=== PATIENT | female | born 1935 | race Caucasian/White ===

== ENCOUNTER 2016-11-01 09:00 | Inpatient (IN) | payer MEDICARE ==
[~2016-11-01] VITALS: Ht 154.9 cm; Wt 82.3 kg
--- NOTE | ~2016-11-01 | DS ---
PATIENT'S NAME: ADE RICARDO [facility] AGE: 81 Y [address] ROOM: [address] [address] LOCATION: GPCU ADMIT DATE: 11/07/2016 Discharge Summary DISCHARGE DATE: 11/09/2016 FAMILY PHYSICIAN: Keanu Salvador MD ATTENDING PHYSICIAN: Kelly Nielsen ADMISSION MAIN DIAGNOSIS: Pituitary macroadenoma with visual field defect. DISCHARGE MAIN DIAGNOSIS: Pituitary macroadenoma with visual field defect. PROCEDURE DURING ADMISSION: Stealth-guided endoscopic endonasal transsphenoidal resection of pituitary macroadenoma. COMPLICATIONS DURING ADMISSION: None. MEDICATIONS ON DISCHARGE: 1. Resume all pre-admission medications as listed in the discharge summary. 2. Aspirin 81 mg p.o. once daily, start on November 19, 2016. 3. Clindamycin 150 mg p.o. b.i.d. for 3 days and then stop. DISCHARGE INSTRUCTIONS AND FOLLOWUP APPOINTMENTS: 1. Myself on November 23, 2016, for postoperative assessment. 2. Call my office for any concerns such as leakage from the nose, new neurologic deficits. 3. No nasal blowing for 3 weeks, no swimming for 6 weeks. HOSPITAL COURSE: The patient was admitted electively for the above-mentioned surgery. She underwent an unremarkable operation. Postoperatively, the patient did very well. She had no new neurologic deficits. Her visual field defect was stable and there was no worsening of her vision. The patient was initially monitored in the intensive care unit and subsequently transferred to the segura. She remained neurologically stable. Her urine output was monitored and there was no evidence of diabetes insipidus. The a.m. cortisol level was checked on postoperative day #1 and postoperative day #2 and that was within normal. She had no leakage from her nose. On the day of discharge, the patient was examined. Her nose was dry. Her vital signs were stable. Her vision was stable. She had no new neurologic deficits. I reviewed the discharge instructions with the patient, and based on my assessment, the patient will be discharged home today. KELLY NIELSEN MD PATIENT'S NAME: ADE RICARDO [facility] AGE: 81 Y [address] ROOM: [place] [address] [facility] ADMIT DATE: 11/07/2016 Discharge Summary DISCHARGE DATE: 11/09/2016 FAMILY PHYSICIAN: Keanu Salvador MD ATTENDING PHYSICIAN: Kelly Nielsen /[id number] CC: Keanu Salvador MD d: 11/10/16 0317 t: 11/10/16 1643, DISCHARGE SUMMARY
--- NOTE | ~2016-11-01 | OR ---
PATIENT'S NAME: ADE RICARDO [facility] AGE: 81 Y [address] ROOM: [place] [address] LOCATION: GICU ADMIT DATE: 11/07/2016 OR/Procedure Report DISCHARGE DATE: FAMILY PHYSICIAN: KEANU DUNAWAY MD ATTENDING PHYSICIAN: KELLY NIELSEN SURGEON: Kelly Nielsen MD SUPERVISOR STAVE FINISHING: DATE OF PROCEDURE: 11/07/2016 ANESTHESIOLOGIST: Oliver Geronimo M.D. ANESTHESIA: General. COMPLICATIONS: None. ESTIMATED BLOOD LOSS: 150 mL. PREOPERATIVE DIAGNOSIS: Pituitary macroadenoma with visual field defect. POSTOPERATIVE DIAGNOSIS: Pituitary macroadenoma with visual field defect. PROCEDURES: 1. Stealth navigation system for resection of pituitary macroadenoma. 2. Endoscopic endonasal transsphenoidal resection of pituitary macroadenoma. CLINICAL HISTORY: The patient is an 81-year-old female patient, who was diagnosed with large pituitary tumor with significant compression on the optic chiasm. The patient had visual field defect related to the tumor. I recommended the above mentioned surgery to the patient and her family to try to decompress the optic apparatus and improve her vision. I discussed the procedure itself, the risks and benefits associated with it. The patient was interested in proceeding with surgery, so she was brought in for the surgery. DESCRIPTION OF PROCEDURE: The patient was seen in the preoperative care unit and the correct side was marked. Then, she was transferred to the main operating theater, was given general anesthetic, and underwent endotracheal intubation without complications. Preoperative antibiotics were given. An arterial line was used throughout the procedure. Calf compressors were used throughout the procedure. A Schwartz catheter was inserted and used throughout the procedure. The patient was positioned supine on the table and all her joints and bony prominences were securely padded. The patient's head was clamped in radiolucent Cronin and secured to the table. Then, the patient was registered to the [employer] navigation system with good accuracy. I then marked the transverse incision on the right upper quadrant of the abdomen for PATIENT'S NAME: ADE RICARDO [facility] AGE: 81 Y [address] ROOM: [place] [address] LOCATION: GICU ADMIT DATE: 11/07/2016 OR/Procedure Report DISCHARGE DATE: FAMILY PHYSICIAN: KEANU DUNAWAY MD ATTENDING PHYSICIAN: KELLY NIELSEN potential fat graft. The nose and the abdomen were then prepped and draped as per usual. Using the endoscope, I navigated through the nose from the right nostril up to the floor of the sphenoid sinus. The middle turbinate was reflected laterally. The mucosa overlying the bony septum was removed, then the bony septum was removed down to the vomer. I used the [employer] navigation system to navigate through the nose down to the anterior aspect of the sphenoid sinus. The floor of the sphenoid sinus was then removed using rongeur. The lumen of the sphenoid sinus was entered and the mucosa overlying it was removed. Immediately, I noticed the part of the tumor that is located in the sphenoid sinus. The tumor itself caused significant destruction of the sella turcica floor. I was satisfied with the exposure, so I proceeded to the resection. I started by opening the dura in the midline and then laterally. Immediately, I came across the large pituitary macroadenoma. Using ring curettes, multiple specimens were taking out and sent for pathological analysis. Then, the tumor was completely resected using suction and ring curettes. At the end of the resection, the diaphragma sellae was completely decompressed. I had no CSF leak during the resection. I was satisfied with the resection, so I proceeded to hemostasis and closure. The surgical site was copiously irrigated with warm Plasma-Lyte. Then, the dural opening was repaired using dura repair. DuraSeal was used to seal the opening. Hemostasis was maintained in the nasal cavity and any debris was removed. At the end of the operation, the instrument and sponge counts were correct. The patient tolerated the operation without any complications. KELLY NIELSEN MD AB/modl /[id number] CC: Keanu Dunaway MD d: 11/07/162022 t: 11/08/16 1055, OPERATIVE SUMMARY
[2016-11-01] MEDS ORDERED: ASPIRIN EC81 MG PO (09:32)
[2016-11-01] MEDS ORDERED: OMEPRAZOLE20 MG PO (09:33)
[2016-11-01] MEDS ORDERED: LEVOTHROID (SY50 MCG PO (09:34)
[2016-11-01] MEDS ORDERED: LOTENSIN40 MG PO (09:35)
[2016-11-01] MEDS ORDERED: NORVASC10 MG PO (09:35)
[2016-11-01] MEDS ORDERED: ZOCOR20 MG PO (09:35)
[2016-11-01] MEDS ORDERED: LATANOPROST2.5 ML OPHTH (09:37)
[2016-11-01] MEDS ORDERED: AYR SALINE50 ML NOSE (09:39)
[2016-11-01] MEDS ORDERED: COLACE100 MG PO (10:28)
[2016-11-07 17:11] LABS: ALBUMIN 3.6 gm/dL (3.5-5.0); ANION GAP 14.3 (10.0-19.0); CALCIUM 7.8 mg/dL (8.5-10.5); CREATININE 0.9 mg/dL (0.5-1.1); POTASSIUM 4.3 mMol/L (3.7-5.1); TOTAL BILIRUBIN 0.4 mg/dL (0.0-1.5); TOTAL PROTEIN 6.5 g/dL (6.0-8.4)
[2016-11-07 17:12] LABS: BASOPHIL % 0.2 %; EOSINOPHIL % 0.1 %; HEMATOCRIT 30.5 % (30.0-46.0); HEMOGLOBIN 10.2 g/dL (10.0-15.0); IMMATURE GRANULOCYTE % 0.2 %; LYMPHOCYTE # 0.8 K/uL (0.8-4.0); LYMPHOCYTE % 8.2 %; MCH 31.1 pg (27.0-34.0); MCHC 33.4 gm/dL (32.0-36.5); MONOCYTE # 0.6 K/uL (0.0-1.0); MONOCYTE % 6.2 %; MPV 10.8 fl (9.4-12.4); NEUTROPHIL # (ANC) 7.7 K/uL (1.8-7.8); NEUTROPHIL % 85.1 %; NRBC % 0 /100WBC (0-0.00); PLATELET COUNT 160 K/uL (150-450); RBC 3.28 M/uL (3.00-5.00); RDW-CV 12.5 % (11.9-14.6); WBC 9.1 K/uL (4.0-11.0)
--- NOTE | 2016-11-08 04:48 | NUR ---
Significant Event: A/O. DID NOT REST WELL OVERNIGHT. VSS. BP LOW OF 91. DESATS TO 70'S WHILE SLEEPING. PLACED ON 2L O2 OVERNIGHT. NOTIFIED DR. CLAROS OF O2 AND SBP IN 90'S, HE WAS "OK" WITH BOTH. HAD 1030ML UOP FROM [place]. NO BM OVERNIGHT. SMALL PO INTAKE. NO NAUSEA. DENIES PAIN. GAUZE TO NARES INTACT, NO DRAINAGE. HAS HAD SMALL AMOUNT OF BLOODY SPUTUM COUGHED OUT. BATH COMPLETE. Follow up: CONTINUE TO MONITOR.
[2016-11-08 05:31] LABS: BASOPHIL % 0.1 %; HEMATOCRIT 28.5 % (30.0-46.0); HEMOGLOBIN 9.6 g/dL (10.0-15.0); IMMATURE GRANULOCYTE % 0.3 %; LYMPHOCYTE # 0.7 K/uL (0.8-4.0); LYMPHOCYTE % 10.1 %; MCH 31.4 pg (27.0-34.0); MCHC 33.7 gm/dL (32.0-36.5); MCV 93.1 fl (83.0-98.0); MONOCYTE # 0.6 K/uL (0.0-1.0); MONOCYTE % 8.1 %; MPV 10.4 fl (9.4-12.4); NEUTROPHIL # (ANC) 5.6 K/uL (1.8-7.8); NEUTROPHIL % 81.4 %; NRBC % 0 /100WBC (0-0.00); PLATELET COUNT 159 K/uL (150-450); RBC 3.06 M/uL (3.00-5.00); RDW-CV 12.8 % (11.9-14.6); WBC 6.9 K/uL (4.0-11.0)
[2016-11-08 05:48] LABS: ALBUMIN 2.9 gm/dL (3.5-5.0); ALK PHOS 51 IU/L (33-138); ALT 25 IU/L (12-78); ANION GAP 14.2 (10.0-19.0); AST 25 IU/L (10-40); BLOOD UREA NITROGEN 10 mg/dL (6-24); CALCIUM 7.9 mg/dL (8.5-10.5); CHLORIDE 107 mMol/L (96-110); CO2 20 mMol/L (22-32); CREATININE 0.8 mg/dL (0.5-1.1); ESTIMATED GFR (MDRD EQUATION) > 60; POTASSIUM 4.2 mMol/L (3.7-5.1); SODIUM 137 mMol/L (135-145); TOTAL BILIRUBIN 0.4 mg/dL (0.0-1.5); TOTAL PROTEIN 5.7 g/dL (6.0-8.4)
--- NOTE | 2016-11-08 13:18 | NUR ---
Patient is A/Ox3, follows all commands, denies numnbess/tingling. No vision in left eye from midline to the right, this was baseline prior to OR. Right vision no issues. Afebrile. Paced with HR 60-70's VSS. Hypoactive bowel sounds, no BM. Schwartz disconintued at 1040, no UOP since. Regular diet/fluids, tolerating well. NO N/V. No dizziness noted. PT/OT sees patient.Walked in georges x1. Neurochecks q4h. RA with clear/diminished lung sounds.
--- NOTE | 2016-11-08 13:46 | NUR ---
Introduced self and role of care management to pt. She lives in [place] with her and her son is back from [place] and plans on staying as long as he is needed. PT also has a son in [place] and several grandchildren near the area and one is a nurse at [employer]. She states she is independent with cares and does not use any dme. She plans on home when ready and I did mention hhc if needed. WIll continue to follow and assist as needed.
--- NOTE | 2016-11-08 15:17 | NUR ---
Significant Event: PATIENT HERE FROM ICU AT 1310. A/O X 3. FOLLOWS COMMANDS. MODERATE STRENGTH. DENIES NUMBNESS/TINGLING. PUPILS 3MM, BRISK. LEFT PERIPHERAL VISION LOSS. PACED. TRACE EDEMA TO LOWER EXTREMITIES. LUNGS CLEAR AND DIM ON ROOM AIR. DENIES PAIN SO FAR THIS SHIFT. UP WITH 1 ASSIST AND WALKER. IV TO RT HAND INFUSING NORMAL SALINE. LEFT HAND SALINE LOCKED. JENNIFER DC'D AT 1040, AWAITING VOID. NO NOSE BLOWING PER DR ORDERS. ALARMS ON FOR SAFETY. Follow up: NEURO STATUS. ALARMS. POSSIBLY HOME SOON.
--- NOTE | 2016-11-09 02:48 | NUR ---
Significant Event:Patient alert and ox3. Up with stby/gb/walker. No c/o pain. does c/o rt shoulder being slightly achy-states hx of previous injury. SL to both hands, intermittant ATB. No drainage noted. There is dried blood in rt nare. Coughs up some red tinged sputum at times. Follow up:Possible home today.
[2016-11-09 06:26] LABS: BASOPHIL % 0.4 %; EOSINOPHIL # 0.1 K/uL (0.0-0.5); EOSINOPHIL % 1.7 %; HEMATOCRIT 30.3 % (30.0-46.0); HEMOGLOBIN 10.1 g/dL (10.0-15.0); IMMATURE GRANULOCYTE % 0.3 %; LYMPHOCYTE # 1.7 K/uL (0.8-4.0); LYMPHOCYTE % 24.2 %; MCH 31.1 pg (27.0-34.0); MCHC 33.3 gm/dL (32.0-36.5); MCV 93.2 fl (83.0-98.0); MONOCYTE # 0.8 K/uL (0.0-1.0); MONOCYTE % 10.8 %; MPV 10.1 fl (9.4-12.4); NEUTROPHIL # (ANC) 4.5 K/uL (1.8-7.8); NEUTROPHIL % 62.6 %; NRBC % 0 /100WBC (0-0.00); PLATELET COUNT 166 K/uL (150-450); RBC 3.25 M/uL (3.00-5.00); RDW-CV 12.8 % (11.9-14.6); WBC 7.2 K/uL (4.0-11.0)
[2016-11-09 06:45] LABS: ALBUMIN 3.1 gm/dL (3.5-5.0); ANION GAP 11.1 (10.0-19.0); CALCIUM 7.9 mg/dL (8.5-10.5); POTASSIUM 4.1 mMol/L (3.7-5.1); TOTAL BILIRUBIN 0.4 mg/dL (0.0-1.5); TOTAL PROTEIN 6.1 g/dL (6.0-8.4)
[2016-11-09] MEDS ORDERED: CLEOCIN150 MG PO (10:49)
--- NOTE | 2016-11-09 15:29 | NUR ---
BELONGINGS GATHERED AND SENT WITH PATIENT. IV'S DC'D. DISCHARGE INFO REVIEWED WITH PATIENT, AND SON. NO NEW QUESTIONS. TAKEN TO FRONT LOBBY BY TRANSPORT.
== END 2016-11-09 15:02 | disposition disaster alternative care site (69) | DRG 615 ==
LOC: G3N 11-07 06:00 → GICU 11-07 06:00 → GPCU 11-08 13:08
PROVIDERS: ADMIT Neurological Surgery
PROC: 0GB04ZX Excision of Pituitary Gland, Percutaneous Endoscopic Approach, Diagnostic (ICD-10-PCS; principal; 2016-11-07)
DX: D35.2 Benign neoplasm of pituitary gland (principal); H54.62 Unqualified visual loss, left eye, normal vision right eye
CPT/HCPCS: A9270; J0171; J2001; J2405; J2550; J3010; J3480; J7030; J7050; P9045

== ENCOUNTER → 2016-11-05 | Outpatient (CLI) | payer MEDICARE ==
[~2016-11-05] MED LIST: ASPIRIN EC81 MG PO; AYR SALINE50 ML NOSE; CLEOCIN150 MG PO; COLACE100 MG PO; LATANOPROST2.5 ML OPHTH; LEVOTHROID (SY50 MCG PO; LOTENSIN40 MG PO; NORVASC10 MG PO; OMEPRAZOLE20 MG PO; ZOCOR20 MG PO
== END | disposition disaster alternative care site (69) ==
LOC: GRAD 12:50
DX: Z01.818 Encounter for other preprocedural examination (principal); D49.7 Neoplasm of unspecified behavior of endocrine glands and other parts of nervous system; D35.2 Benign neoplasm of pituitary gland; D14.0 Benign neoplasm of middle ear, nasal cavity and accessory sinuses

== ENCOUNTER → 2016-12-27 | Outpatient (CLI) | payer MEDICARE | END | disposition disaster alternative care site (69) | LOC: GLAB 12:30 | PROVIDERS: Neurological Surgery | DX: D49.7 Neoplasm of unspecified behavior of endocrine glands and other parts of nervous system (principal) ==

== ENCOUNTER → 2017-04-05 | Outpatient (CLI) | payer MEDICARE ==
[2017-04-05 09:22] LABS: CREATININE 1.3 mg/dL (0.5-1.1)
== END | disposition disaster alternative care site (69) ==
LOC: GRAD 08:41 → GLAB 09:00
PROVIDERS: Neurological Surgery
DX: D49.7 Neoplasm of unspecified behavior of endocrine glands and other parts of nervous system (principal); Z86.018 Personal history of other benign neoplasm